=== PATIENT | male | born 1985 | race Hispanic/Latino ===

== ENCOUNTER 2023-07-28 09:24 | Emergency (ER) | payer SELFPAY ==
[2023-07-28 09:44] VITALS: BP 121/83; PULSE 59; RESP 16; TEMP 35.8; O2SAT 99
[2023-07-28] MEDS: TETANUS,DIPHTHERIA,AC PERTUSSIS ADULT (0.5 ML) BOOSTRIX IM (10:07)
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
== END 2023-07-28 10:30 | disposition short-term general hospital (02) ==
PROVIDERS: Emergency Provider Nurse Practitioner Family
DX: T24.231A Burn of second degree of right lower leg, initial encounter (principal); T24.232A Burn of second degree of left lower leg, initial encounter; T22.251A Burn of second degree of right shoulder, initial encounter; T22.231A Burn of second degree of right upper arm, initial encounter; T22.211A Burn of second degree of right forearm, initial encounter; X08.8XXA Exposure to other specified smoke, fire and flames, initial encounter; Z23 Encounter for immunization
CPT/HCPCS: 90471; 90715; 99212; G0463